=== PATIENT | female | born 1930 | race Caucasian/White ===

== ENCOUNTER → 2018-04-14 | Outpatient (CLI) | payer MEDICARE, BC ==
[~2018-04-14] MED LIST: ATORVASTATIN; CALTRATE-600 W600 MG PO; FOSAMAX PO; PROPOXYPHENE HC65 MG PO; VERAPAMIL
[2018-04-14 13:21] LABS: HIV 1/2 Antibodies Non-Reactive; HIV-1p24 Antigen Non-Reactive
== END ==
LOC: COL.LAB 12:11
PROVIDERS: Orthopaedic Surgery
DX: Z01.812 Encounter for preprocedural laboratory examination (principal); M16.11 Unilateral primary osteoarthritis, right hip